=== PATIENT | female | born 1990 | race Caucasian/White ===

== ENCOUNTER 2020-10-27 10:05 | Outpatient (CLI) | payer OTHER, SELFPAY | END 2020-10-27 10:06 | disposition home or self-care (01) | LOC: ANHBWCAUD 10:06 | PROVIDERS: PCP Nurse Practitioner Family; Visit Provider Nurse Practitioner Family | DX: H93.13 Tinnitus, bilateral (principal) | CPT/HCPCS: 92557; 92567 ==

== ENCOUNTER 2021-01-30 10:38 | Outpatient (CLI) | payer OTHER, SELFPAY ==
[2021-01-30 11:56] LABS: HIV 1/2 Ab P24 Ag Result Negative (Negative)
[2021-01-30 12:02] LABS: Hepatitis C Virus Antibody Negative (Negative)
[2021-01-30 12:18] LABS: Hepatitis B Surface Antigen Negative (Negative)
[2021-01-31 06:24] LABS: Rapid Plasma Reagin Non-Reactive (NonReactive)
== END 2021-01-30 10:39 | disposition home or self-care (01) ==
LOC: ANHLAB 10:39
PROVIDERS: PCP Nurse Practitioner Family; Visit Provider Obstetrics & Gynecology
DX: Z20.2 Contact with and (suspected) exposure to infections with a predominantly sexual mode of transmission (principal)
CPT/HCPCS: 36415; 86592; 86703; 86803; 87340; G0432

== ENCOUNTER 2022-03-26 11:12 | Outpatient (CLI) | payer OTHER, SELFPAY ==
[2022-03-26 12:40] LABS: HIV 1/2 Ab P24 Ag Result Negative (Negative)
[2022-03-26 13:42] LABS: Hepatitis B Surface Antigen Negative (Negative)
[2022-03-26 14:00] LABS: Hepatitis C Virus Antibody Negative (Negative)
[2022-03-27 12:38] LABS: Rapid Plasma Reagin Non-Reactive (NonReactive)
== END 2022-03-26 11:13 | disposition home or self-care (01) ==
PROVIDERS: PCP Nurse Practitioner Family; Visit Provider Obstetrics & Gynecology
DX: Z20.2 Contact with and (suspected) exposure to infections with a predominantly sexual mode of transmission (principal)
CPT/HCPCS: 36415; 86592; 86703; 86803; 87340; G0432

== ENCOUNTER 2023-04-23 13:42 | Outpatient (CLI) | payer OTHER, SELFPAY ==
[2023-04-23 14:58] LABS: Thyroid Stimulating Hormone Reflex 0.699 uIU/mL (0.465-4.68)
== END 2023-04-23 13:43 | disposition home or self-care (01) ==
LOC: ANHLAB 13:43
PROVIDERS: PCP Nurse Practitioner Family; Visit Provider Obstetrics & Gynecology
DX: E04.9 Nontoxic goiter, unspecified (principal)
CPT/HCPCS: 36415; 84443

== ENCOUNTER 2023-11-03 15:58 | Outpatient (CLI) | payer OTHER, SELFPAY ==
--- NOTE | ~2023-11-03 | US_ITS ---
EXAMINATION: US pelvic complete w TV DATE: 11/03/2023 16:41 INDICATION: Excessive and frequent menstruation. TECHNIQUE: Multiple transabdominal and transvaginal sonographic images of the pelvis were obtained. COMPARISON: None. FINDINGS: TRANSABDOMINAL ULTRASOUND: The uterus measures 7.1 x 3.8 x 4.4 cm. There is no free fluid in the pelvis. TRANSVAGINAL ULTRASOUND: The endometrial complex measures 2 mm in thickness. The intrauterine device is in the lower uterine s egment. There is a 1.4 cm subserosal fibroid. The right ovary measures 2.8 x 1.6 x 2.8 cm. The left o vary measures 2.6 x 1.4 x 2.1 cm. There is normal vascular flow in the ovaries. IMPRESSION: 1. Intrauterine device in abnormal position. 2. Uterine fibroid. Reviewed, dictated and finalized at location A.
== END 2023-11-03 15:59 | disposition home or self-care (01) ==
LOC: ANHIMG 15:59
PROVIDERS: PCP Nurse Practitioner Family; Visit Provider Obstetrics & Gynecology
DX: N92.1 Excessive and frequent menstruation with irregular cycle (principal); D25.9 Leiomyoma of uterus, unspecified; Z97.5 Presence of (intrauterine) contraceptive device
CPT/HCPCS: 76830; 76856

== ENCOUNTER 2023-11-04 14:50 | Emergency (ER) | payer OTHER, SELFPAY ==
[2023-11-04 14:55] VITALS: BP 128/66; PULSE 84; RESP 16; TEMP 36.9; O2SAT 100
--- NOTE | 2023-11-04 15:04 | ED.SKABFB ---
HPI - Skin/Abscess/Foreign Bdy General Chief complaint: Skin/Abscess/Foreign Body Stated complaint: skin fungal infection(stomach) History of Present Illness HPI narrative: Patient presents with a rash to her abdomen that she has been applying [id number] antifungal lotion to. Patient states she is improving with the medication but wants to make sure she is treating it correctly. Related Data Home Medications Medication Instructions Recorded Confirmed copper 380 square mm intrauterine 1 device intrauterine ONCE 08/22/20 04/24/23 device (ParaGard T 380A) bupropion HCl 150 mg 24 hr tablet, 150 mg PO QAM 10/21/23 10/21/23 extended release (Wellbutrin XL) fluoxetine 40 mg capsule 40 mg PO DAILY 10/21/23 10/21/23 Allergies Allergy/AdvReac Type Severity Reaction Status Date / Time Penicillins Allergy Mild Unknown Verified 10/21/23 10:16 Sulfa (Sulfonamide Allergy Mild Unknown Verified 10/21/23 10:16 Antibiotics) Review of Systems Review of Systems: CONSTITUTIONAL: Denies fever, chills, or sweats. EYES: Denies visual changes, redness, or discharge. ENT: Denies rhinorrhea, congestion, sore throat, or otalgia. CARDIOVASCULAR: Denies chest pain, palpitations, or edema. RESPIRATORY: Denies cough or dyspnea. GASTROINTESTINAL: Denies abdominal pain, nausea, vomiting, or diarrhea. GENITOURINARY: Denies dysuria or hematuria. SKIN: Denies rash or itching. MUSCULOSKELETAL: Denies back pain, joint pain, or myalgia. NEUROLOGIC: Denies headache, numbness, or weakness. PSYCHIATRIC: Denies anxiety or depression. [facility] Past Medical History Medical History Depression Surgical History Surgical History History of ankle surgery Family History Family History Mother Diabetes mellitus Father Diabetes mellitus Cancer of kidney Father Family history of malignant neoplasm of kidney Other Family history of arthritis Family history of malignant neoplasm Social History Social History Smoking status: Never smoker Alcohol intake: unknown Substance use: never Do You Feel Safe in your Home?: Yes Lack of Transportation: No Lack of Food: Never True Current Housing: I Have Housing Concerned About Future Housing: No Difficulty Paying Gas/Electric Bills: No Difficulty Paying for Meds: No Currently Unemployed: No Education: Master's Degree or Higher Difficulty w/ Childcare or Family Care: No Comments At time of signature, agree with nursing past medical, surgical, social and family history. There is no relevant family history pertinent to the presenting complaint Exam Narrative: GENERAL: Well-appearing, well-nourished, and in no acute distress. HEAD: Normocephalic, atraumatic. EYES: PERRLA and EOMI. ENT: Nares clear, no rhinorrhea or epistaxis. Mucous membranes moist. NECK: Supple. CHEST: Clear to auscultation. No respiratory distress. HEART: Regular rate and rhythm. No murmur heard. Normal peripheral pulses. ABDOMEN: Soft, nontender, nondistended, normal active bowel sounds. EXTREMITIES: Normal range of motion. No edema. SKIN: Warm, dry, no rash. Nelly rash dry flaky reddened area consistent with fungal rash NEURO: No focal deficits. Alert and oriented x3. [place] Coma Scale Eye Opening: Spontaneous 4 [place] Coma Scale Motor: Obeys Commands 6 [place] Coma Scale Verbal: Oriented 5 [place] Coma Scale Total 15 Course Course Level of Care: Express Care Visit Vital Signs Vital signs: Vital Signs Temperature 36.9 C 11/04/23 14:55 Pulse Rate 84 11/04/23 14:55 Respiratory Rate 16 11/04/23 14:55 Blood Pressure 128/66 11/04/23 14:55 Pulse Oximetry 100 11/04/23 14:55 Oxygen Delivery Room Air 11/04/23 14:55 Temperature 36.9 C
== END 2023-11-04 15:18 | disposition home or self-care (01) ==
PROVIDERS: Emergency Provider Nurse Practitioner Family; PCP Nurse Practitioner Family
DX: B36.9 Superficial mycosis, unspecified (principal); F32.A Depression, unspecified
CPT/HCPCS: 99213; G0463

== ENCOUNTER 2024-05-14 13:41 | Outpatient (CLI) | payer OTHER, SELFPAY ==
[2024-05-14 14:27] LABS: Vitamin D 25 Hydroxy 36.8 ng/mL
[2024-05-14 14:41] LABS: Thyroid Stimulating Hormone Reflex 0.838 uIU/mL (0.465-4.68)
[2024-05-14 16:14] LABS: Hemoglobin A1C 4.7 % (<5.7)
[2024-05-15 08:09] LABS: Insulin Level Total 8.9 uIU/mL
== END 2024-05-14 13:42 | disposition home or self-care (01) ==
PROVIDERS: PCP Nurse Practitioner Family; Visit Provider Nurse Practitioner Obstetrics & Gynecology
DX: L68.0 Hirsutism (principal)
CPT/HCPCS: 36415; 82306; 83036; 83525; 84443